=== PATIENT | female | born 1985 ===

== ENCOUNTER 2017-07-03 09:20 | Outpatient (CLI) | payer OTHER ==
--- NOTE | 2017-07-03 11:03 | Ultrasound Report ---
TRANSABDOMINAL AND TRANSVAGINAL PELVIC ULTRASOUND: 07/03/17 09:20:00 CLINICAL: Infertility. Irregular menses. FINDINGS: Transabdominal and transvaginal pelvic ultrasound demonstrated a small fibroid uterus measuring 7.2 x 3.3 x 4.8 cm. A subserosal posterior body uterine fibroid measures 2.1 x 1.9 x 1.5 cm. No other measurable fibroids. The endometrium heterogeneous and measures 11.0 mm AP thickness. Normal ovaries with several small follicles in each ovary. The right ovary measures 2.6 x 1.9 x 2.2cm. The left ovary measures 2.6 x 1.7 x 1.3cm. No adnexal mass. No free fluid. Normal urinary bladder. IMPRESSION: 1. A small fibroid uterus. 2. Normal proliferative endometrium. 3. Normal ovaries. No signs of PCOS.
== END 2017-07-03 09:21 | disposition home or self-care (01) ==
LOC: SPVWC 09:20
PROVIDERS: ATTEND Family Medicine
DX: D25.2 Subserosal leiomyoma of uterus (principal); E28.2 Polycystic ovarian syndrome
CPT/HCPCS: 76830; 76856